=== PATIENT | male | born 2005 | race African-American/Black ===

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

== ENCOUNTER 2024-01-07 07:53 | Emergency (ER) | payer OTHER, SELFPAY ==
[2024-01-07] MEDS ORDERED: AZITHROMYCIN 250 MG TAB ONE (08:39)
[2024-01-07 09:11] LABS: SARS-CoV-2 Antigen CONTROL BLUE LINE VIS/BG OK; SARS-CoV-2 Antigen Rapid Res Negative (Negative)
--- NOTE | 2024-01-07 10:21 | ER ---
Nurse's Notes [facility] Name: Don Maya Age: 18 yrs Sex: Male : 2005 Arrival Date: 01/07/2024 Time: 07:53 Bed 11 Private MD: Diagnosis: Streptococcal pharyngitis;Streptococcal tonsillitis;Fever, unspecified;Acute upper respiratory infection, unspecified Presentation: 01/06 08:33 Chief complaint: Patient states: cold symptoms and sore throat X 4 days. Coronavirus iw screen: Client presents with at least one sign or symptom that may indicate coronavirus-19. Ebola Screen: No symptoms or risks identified at this time. Initial Sepsis Screen: Does the patient meet any 2 criteria? No. Patient's initial sepsis screen is negative. Does the patient have a suspected source of infection?. Risk Assessment: Do you want to hurt yourself or someone else? Patient reports no desire to harm self or others. 08:33 Method Of Arrival: Ambulatory iw 08:33 Acuity: COLEMAN 4 iw 09:00 Onset of symptoms was January 05, 2024. kb3 Historical: - Allergies: 08:34 No Known Allergies; iw - PMHx: 08:34 adhd; Anxiety; Asthma; iw - Immunization history:: Adult Immunizations up to date, Client reports receiving the 2nd dose of the Covid vaccine, Last tetanus immunization: up to date. - Infectious Disease History:: Denies. - Social history:: Smoking status: Reported history of juuling and/or vaping. - Family history:: not pertinent. Screenin:00 [facility] ED Fall Risk Assessment (Adult) History of falling in the last 3 months, kb3 including since admission No falls in past 3 months (0 pts) Confusion or Disorientation No (0 pts) Intoxicated or Sedated No (0 pts) Impaired Gait No (0 pts) Mobility Assist Device Used No (0 pt) Altered Elimination No (0 pt) Score/Fall Risk Level 0 - 2 = Low Risk Oriented to surroundings. 09:00 Abuse screen: Denies threats or abuse. Denies injuries from another. Nutritional kb3 screening: No deficits noted. Tuberculosis screening: No symptoms or risk factors identified. Assessment: 09:00 General: Appears in no apparent distress. Behavior is calm, cooperative. Pain: kb3 Complains of pain in uvula, left aspect of posterior pharynx and right aspect of posterior pharynx Pain does not radiate. Pain currently is 8 out of 10 on a pain scale. Quality of pain is described as burning, Pain began gradually. EENT: Throat is reddened has patchy exudate has enlarged tonsils. Vital Signs: 08:33 BP 125 / 82; Pulse 94; Resp 16; Temp 98.2; Pulse Ox 99% ; Pain 7/10; iw 10:45 BP 117 / 68; Pulse 68; Resp 18; Pulse Ox 100% ; kb3 08:33 Pain Scale: Adult iw ED Course: 07:57 Patient arrived in ED. im 07:59 Sudarshan Dallas MD is Attending Physician. [facility] 08:34 Triage completed. iw 08:35 Arm band placed on. iw 08:48 Strep Sent. iw 08:48 SARS RAPID Sent. iw 08:48 Flu Sent. iw 09:00 Patient has correct armband on for positive identification. Bed in low position. Call kb3 light in reach. Provided Education on: Plan of care. 09:00 No provider procedures requiring assistance completed. Patient did not have IV access kb3 during this emergency room visit. Administered Medications: 08:48 Drug: AZITHromycin PO 500 mg PO once Route: PO; iw 10:48 Follow up: Response: No adverse reaction kb3 10:48 Drug: Ondansetron PO 4 mg PO once Route: PO; kb3 10:48 Follow up: Response: No adverse reaction kb3 Medication: 10:45 VIS not applicable for this client. kb3 Outcome: 10:21 Discharge ordered by . amos 10:52 Discharged to home ambulatory, kb3 10:52 Condition: stable 10:52 Discharge instructions given to patient, Instructed on discharge instructions, follow up and referral plans. medication usage, Demonstrated understanding of instructions, follow-up care, medications, Prescriptions given X 3, 10:52 Patient left the ED. kb3 Signatures: Sudarshan Dallas MD MD cha Williams, Irene RN MISAEL Aliya Eubanks RN RN kb3 Randi Gomez im
--- NOTE | 2024-01-07 10:21 | EDPHYS ---
Physician Documentation [facility] Name: Don Maya Age: 18 yrs Sex: Male : 2005 Arrival Date: 01/07/2024 Time: 07:53 Bed 11 Private MD: UMBERTO Physician Sudarshan Dallas HPI: 01/06 10:15 This 18 yrs old Black Male presents to ER via Ambulatory with complaints of Flu amos Symptoms. 10:15 The patient presents with sore throat. The patient describes throat pain as burning, amos constant, raw. Onset: The symptoms/episode began/occurred 2 day(s) ago. The patient or guardian reports cough, that is intermittent, flu symptoms, arthralgias, low-grade fever, myalgias, no appetite. Modifying factors: The symptoms are alleviated by remaining still, the symptoms are aggravated by activity. Severity of symptoms: At their worst the symptoms were mild, in the emergency department the symptoms are unchanged. Associated signs and symptoms: Pertinent positives: fever, rhinorrhea, sore throat. Modifying factors: The symptoms are alleviated by nothing, the symptoms are aggravated by swallowing. Associated signs and symptoms: Pertinent positives: cough, flu-like symptoms. Severity of symptoms: At their worst the symptoms were moderate in the emergency department the symptoms are unchanged. Historical: - Allergies: 08:34 No Known Allergies; iw - PMHx: 08:34 adhd; Anxiety; Asthma; iw - Immunization history:: Adult Immunizations up to date, Client reports receiving the 2nd dose of the Covid vaccine, Last tetanus immunization: up to date. - Infectious Disease History:: Denies. - Social history:: Smoking status: Reported history of juuling and/or vaping. - Family history:: not pertinent. ROS: 10:15 Constitutional: Negative for fever, chills, and weight loss, Eyes: Negative for injury, amos pain, redness, and discharge, Neck: Negative for injury, pain, and swelling, Cardiovascular: Negative for chest pain, palpitations, and edema, Respiratory: Negative for shortness of breath, cough, wheezing, and pleuritic chest pain, Abdomen/GI: Negative for abdominal pain, nausea, vomiting, diarrhea, and constipation, Back: Negative for injury and pain, : Negative for injury, bleeding, discharge, and swelling, MS/Extremity: Negative for injury and deformity, Skin: Negative for injury, rash, and discoloration, Neuro: Negative for headache, weakness, numbness, tingling, and seizure, Psych: Negative for depression, anxiety, suicide ideation, homicidal ideation, and hallucinations, Allergy/Immunology: Negative for hives, rash, and allergies, Endocrine: Negative for neck swelling, polydipsia, polyuria, polyphagia, and marked weight changes, Hematologic/Lymphatic: Negative for swollen nodes, abnormal bleeding, and unusual bruising, 10:15 ENT: Positive for rhinorrhea, sinus congestion, sore throat, 10:15 Respiratory: Positive for cough, with no reported sputum, 10:15 Skin: Negative for abrasions, abscesses, avulsion, burn, cellulitis, pallor, rash, swelling, Exam: 10:15 Constitutional: This is a well developed, well nourished patient who is awake, alert, amos and in no acute distress. Head/Face: Normocephalic, atraumatic. Eyes: Pupils equal round and reactive to light, extra-ocular motions intact. Lids and lashes normal. Conjunctiva and sclera are non-icteric and not injected. Cornea within normal limits. Periorbital areas with no swelling, redness, or edema. Neck: Trachea midline, no thyromegaly or masses palpated, and no cervical lymphadenopathy. Supple, full range of motion without nuchal rigidity, or vertebral point tenderness. No Meningismus. Chest/axilla: Normal chest wall appearance and motion. Nontender with no deformity. No lesions are appreciated. Cardiovascular: Regular rate and rhythm with a normal S1 and S2. No gallops, murmurs, or rubs. Normal PMI, no JVD. No pulse deficits. Respiratory: Lungs have equal breath sounds bilaterally, clear to auscultation and percussion. No rales, rhonchi or wheezes noted. No increased work of breathing, no retractions or nasal flaring. Abdomen/GI: Soft, non-tender, with normal bowel sounds. No distension or tympany. No guarding or rebound. No evidence of tenderness throughout. Back: No spinal tenderness. No costovertebral tenderness. Full range of motion. Male : Normal genitalia with no discharge or lesions. Skin: Warm, dry with normal turgor. Normal color with no rashes, no lesions, and no evidence of cellulitis. MS/ Extremity: Pulses equal, no cyanosis. Neurovascular intact. Full, normal range of motion. Neuro: Awake and alert, GCS 15, oriented to person, place, time, and situation. Cranial nerves II-XII grossly intact. Motor strength 5/5 in all extremities. Sensory grossly intact. Cerebellar exam normal. Normal gait. Psych: Awake, alert, with orientation to person, place and time. Behavior, mood, and affect are within normal limits. 10:15 ENT: Posterior pharynx: Airway: normal, no evidence of obstruction, Tonsils: are normal in appearance, Uvula: normal, swelling, is not appreciated, erythema, that is mild, exudate, is not appreciated, peritonsillar mass, is not appreciated, Vital Signs: 08:33 BP 125 / 82; Pulse 94; Resp 16; Temp 98.2; Pulse Ox 99% ; Pain 7/10; iw 10:45 BP 117 / 68; Pulse 68; Resp 18; Pulse Ox 100% ; kb3 08:33 Pain Scale: Adult iw MDM: 07:59 Patient medically screened. [facility] 10:19 Differential diagnosis: obstructed airway, bronchitis, flu, URI, group A strep amos tonsillitis, influenza, pharyngitis, tonsillitis, tracheobronchitis, upper respiratory infection, uvulitis, viral syndrome. Antibiotic administration: The patient is discharged and will get outpatient antibiotics, Zithromax. Data reviewed: vital signs, nurses notes, lab test result(s), Flu: negative. Consideration of Admission/Observation Escalation of care including admission/observation considered. I considered the following discharge prescriptions or medication management in the emergency department Medications were administered in the Emergency Department. See MAR. Test considered but Not performed: X-ray: no cxr. Care significantly affected by the following chronic conditions: asthma, anxiety, adhd. 01/06 08:00 Order name: Flu; Complete Time: 10:14 amos 01/06 08:00 Order name: SARS RAPID; Complete Time: :41 amos 01/06 08:00 Order name: Strep; Complete Time: 09:41 amos Administered Medications: 08:48 Drug: AZITHromycin PO 500 mg PO once Route: PO; iw 10:48 Follow up: Response: No adverse reaction kb3 10:48 Drug: Ondansetron PO 4 mg PO once Route: PO; kb3 10:48 Follow up: Response: No adverse reaction kb3 Disposition Summary: 01/07/24 10:21 Discharge Ordered Notes: Location: Home [facility] Problem: new [facility] Symptoms: have improved [facility] Condition: Stable [facility] Diagnosis - Streptococcal pharyngitis amos - Streptococcal tonsillitis amos - Fever, unspecified amos - Acute upper respiratory infection, unspecified amos Followup: [facility] - With: Private Physician - When: 2 - 3 days - Reason: Recheck today's complaints, Continuance of care, Re-evaluation by your physician Discharge Instructions: - Discharge Summary Sheet amos - Fever, Adult amos - Sore Throat amos - Strep Throat, Adult amos - Upper Respiratory Infection, Adult amos - Cool Mist Vaporizer amos - Upper Respiratory Infection, Adult, Olcf-av-Peew amos - Cough, Adult, Hmqq-[id number] amos - Cough, Adult amos - Sore Throat, Ocfr-im-Mhpt amos - Fever, Adult, Xdks-ew-Dshx amos Forms: - Medication Reconciliation Form [facility] - Antibiotic Education amos - Prescription Opioid Use [facility] - Patient Portal Instructions [facility] - Leadership Thank You Letter [facility] Prescriptions: - Tessalon Perles 100 mg Oral capsule - take 2 capsule ORAL route every 8 hours As needed; 30 capsule; Refills: 0, [facility] Product Selection Permitted - Medrol (Christopher) 4 mg Oral Tablets, Dose Pack - take 1 tablet ORAL route as directed - follow package instructions; 1 packet; [facility] Refills: 0, Product Selection Permitted - Zithromax 500 mg Oral Tablet - take 1 tablet ORAL route once daily for 5 days; 5 tablet; Refills: 0, Product [facility] Selection Permitted Signatures: Dispatcher [employer] Sudarshan Owen MD MD cha Williams, Irene, RN RN iw Leal, Jahala, RN RN jl7 Aliya Eubanks RN RN kb3
[2024-01-07] MEDS ORDERED: ONDANSETRON 4 MG (ODT) TAB ONE (10:42)
[2024-01-07 10:58] VITALS: TEMP 98.2
[2024-01-07 10:59] VITALS: BP 117/68; O2SAT 100
== END 2024-01-07 10:52 | disposition home or self-care (01) ==
LOC: ER 07:53
DX: J03.00 Acute streptococcal tonsillitis, unspecified (principal); J06.9 Acute upper respiratory infection, unspecified; Z11.52 Encounter for screening for COVID-19
CPT/HCPCS: 36415; 87081; 87804; 87811; 99283; Q0162

== ENCOUNTER 2024-05-20 21:51 | Emergency (ER) | payer SELFPAY ==
--- OUTSIDE RECORDS SUMMARY | 2024-05-20 21:53 | XMS REPORT | Continuity of Care Document ---
Author Name Unknown Address [address] [facility]. [address] th[address] Address [address] [place] [address] 1 [address] [place] [address] Care Team Providers Care Registered Nurse First Assistant Name Role Phone Unavailable Unavailable Unavailable Encounters Start Date/Time End Date/Time Encounter Type Admission Type Attending Clinicians Care Facility Care Department Encounter ID Source 2024-05-05 11:01:20 2024-05-05 11:01:20 Outpatient [facility] [id number] Keyshawn Zavala
[2024-05-20 22:44] LABS: SARS-CoV-2 Antigen CONTROL BLUE LINE VIS/BG OK; SARS-CoV-2 Antigen Rapid Res Negative (Negative)
--- NOTE | 2024-05-20 23:22 | EDPHYS ---
Physician Documentation [facility] Name: Don Maya Age: 19 yrs Sex: Male : 2005 Arrival Date: 05/20/2024 Time: 21:51 Bed IW3 Private MD: ED Physician Ricky Sanches HPI: 05/20 22:33 This 19 yrs old Black Male presents to ER via Ambulatory with complaints of Flu kb Symptoms. 22:33 Pt is a 19 year old male who presents for malaise, chills, bodyaches, cough and runny kb nose that started today. States everyone in the household has had similar symptoms. Denies any aggravating or alleviating factors. . Historical: - Allergies: 22:05 No Known Allergies; me1 - PMHx: 22:05 adhd; Anxiety; Asthma; me1 - PSHx: 22:05 None; me1 - Immunization history:: Adult Immunizations up to date. - Infectious Disease History:: Denies. - Social history:: Smoking status: Patient reports the use of cigarette tobacco products, smokes one-half pack cigarettes per day. ROS: 22:33 Constitutional: As per HPI kb Exam: 22:33 Constitutional: This is a well developed, well nourished patient who is awake, alert, kb and in no acute distress. Head/Face: Normocephalic, atraumatic. ENT: Moist Mucous membranes Cardiovascular: Regular rate Respiratory: Respirations even and unlabored. No increased work of breathing. Talking in full sentences Skin: Warm, dry with normal turgor. Normal color. MS/ Extremity: Pulses equal, no cyanosis. Neurovascular intact. Full, normal range of motion. Neuro: Awake and alert, GCS 15, oriented to person, place, time, and situation. Vital Signs: 22:02 BP 154 / 95; Pulse 82; Resp 18; Temp 98.4; Pulse Ox 100% ; Weight 104.33 kg; Height 6 me1 ft. 2 in. ; Pain 4/10; 23:32 BP 148 / 89; Pulse 84; Resp 17; Temp 98.4; Pulse Ox 100% ; me1 22:02 Body Mass Index 29.53 (104.33 kg, 187.96 cm) me1 22:02 Pain Scale: Adult me1 MDM: 22:01 Medical Screening Exam initiated 22:34 Differential diagnosis: flu, strep, covid, uri. Data reviewed: vital signs, nurses kb notes. 23:21 I considered the following discharge prescriptions or medication management in the emergency department I discussed and recommended Over The Counter medications, Antibiotics: At this time antibiotics are not recommended, Antivirals: At this time, antivirals are not recommended. Counseling: I had a detailed discussion with the patient and/or guardian regarding the historical points, exam findings, and any diagnostic results supporting the discharge/admit diagnosis, lab results, the need for outpatient follow up, a family practitioner, to return to the emergency department if symptoms worsen or persist or if there are any questions or concerns that arise at home. 05/20 22:05 Order name: Flu; Complete Time: 22:58 kb 05/20 22:05 Order name: SARS-COV-2 Antigen Rapid; Complete Time: 22:58 kb 05/20 22:05 Order name: Strep; Complete Time: 22:58 kb 05/20 22:48 Order name: Throat Culture EDMS Administered Medications: No medications were administered Disposition: 05/21 21:56 Co-signature as Attending Physician, Ricky Sanches MD I agree with the assessment sp4 and plan of care. I reviewed the patient's care provided by the Advanced Practice Provider and agree with the diagnosis and treatment plan. Disposition Summary: 05/20/24 23:21 Discharge Ordered Notes: Location: Home Condition: Stable kb Diagnosis - Acute upper respiratory infection, unspecified kb Followup: kb - With: Emergency Department - When: As needed - Reason: Worsening of condition Followup: kb - With: Private Physician - When: 2 - 3 days - Reason: Recheck today's complaints, Continuance of care, Re-evaluation by your physician Discharge Instructions: - Discharge Summary Sheet kb - Upper Respiratory Infection, Adult, Rsis-ov-Mmuk kb - Viral Respiratory Infection, Robb-Wg-Vbpb kb Forms: - Work release form kb - Medication Reconciliation Form kb - Antibiotic Education kb - Prescription Opioid Use kb - Patient Portal Instructions kb - Leadership Thank You Letter kb Signatures: Dispatcher [employer] EDMarii Estevez FNP-C FNP-Ckb Potepalov, Sergey, MD MD sp4 Tayler Luna RN RN me1 Corrections: (The following items were deleted from the chart) 05/20 22:34 22:33 Pt is a 19 year old male who presents for malaise, cough and runny nose that . kb kb
--- NOTE | 2024-05-20 23:22 | ER ---
Nurse's Notes [facility] Name: Don Maya Age: 19 yrs Sex: Male : 2005 Arrival Date: 05/20/2024 Time: 21:51 Bed IW3 Private MD: Diagnosis: Acute upper respiratory infection, unspecified Presentation: 05/20 22:02 Chief complaint: Patient states: he almost passed out today about noon. c/o body aches, me1 mild cough and congestion that started today. Reports others in the household have been sick with cough. Coronavirus screen: Vaccine status: Patient reports being unvaccinated. Ebola Screen: No symptoms or risks identified at this time. Initial Sepsis Screen: Does the patient meet any 2 criteria? No. Patient's initial sepsis screen is negative. Does the patient have a suspected source of infection? No. Patient's initial sepsis screen is negative. Risk Assessment: Do you want to hurt yourself or someone else? Patient reports no desire to harm self or others. Onset of symptoms was May 19, 2024. 22:02 Method Of Arrival: Ambulatory [facility] 22:02 Acuity: COLEMAN 4 me1 Historical: - Allergies: 22:05 No Known Allergies; me1 - PMHx: 22:05 adhd; Anxiety; Asthma; me1 - PSHx: 22:05 None; me1 - Immunization history:: Adult Immunizations up to date. - Infectious Disease History:: Denies. - Social history:: Smoking status: Patient reports the use of cigarette tobacco products, smokes one-half pack cigarettes per day. Screenin:02 [facility] ED Fall Risk Assessment (Adult) History of falling in the last 3 months, me1 including since admission No falls in past 3 months (0 pts) Confusion or Disorientation No (0 pts) Intoxicated or Sedated No (0 pts) Impaired Gait No (0 pts) Mobility Assist Device Used No (0 pt) Altered Elimination No (0 pt) Score/Fall Risk Level 0 - 2 = Low Risk Maintained a safe environment, Provided non-skid footwear, Hourly rounding (assess needs \T\ fall precautionary measures) done. Abuse screen: Denies threats or abuse. Nutritional screening: No deficits noted. Tuberculosis screening: No symptoms or risk factors identified. Assessment: 22:02 General: Appears in no apparent distress. well groomed, well developed, well nourished, me1 Behavior is calm, cooperative, appropriate for age, Reports he almost passed out today about noon. c/o body aches, mild cough and congestion that started today. Reports others in the household have been sick with cough. Pain: Denies pain. Neuro: Level of Consciousness is awake, alert, obeys commands, Oriented to person, place, time, situation, Appropriate for age. Cardiovascular: Patient's skin is warm and dry. Respiratory: Airway is patent Respiratory effort is even, unlabored, Respiratory pattern is regular, symmetrical. Respiratory: Reports cough that is. GI: No signs and/or symptoms were reported involving the gastrointestinal system. : No signs and/or symptoms were reported regarding the genitourinary system. EENT: Reports nasal congestion. Derm: Skin is intact, is healthy with good turgor, Skin is pink, warm \T\ dry. Musculoskeletal: No signs and/or symptoms reported regarding the musculoskeletal system. Vital Signs: 22:02 BP 154 / 95; Pulse 82; Resp 18; Temp 98.4; Pulse Ox 100% ; Weight 104.33 kg; Height 6 me1 ft. 2 in. ; Pain 4/10; 23:32 BP 148 / 89; Pulse 84; Resp 17; Temp 98.4; Pulse Ox 100% ; me1 22:02 Body Mass Index 29.53 (104.33 kg, 187.96 cm) me1 22:02 Pain Scale: Adult me1 ED Course: 21:58 Patient arrived in ED. im 22:00 [facility]C [facility] kb 22:00 Ricky Sanches MD is Attending Physician. kb 22:02 Patient has correct armband on for positive identification. Provided Education on: POC. me1 Verbalized understanding. 22:02 No provider procedures requiring assistance completed. Patient did not have IV access me1 during this emergency room visit. 22:04 Triage completed. me1 22:05 Arm band placed on Patient placed in waiting room. me1 22:10 COVID swab sent to lab. Flu and/or RSV swab sent to lab. Strep swab sent to lab. me1 Administered Medications: No medications were administered Medication: 22:02 VIS not applicable for this client. me1 Outcome: 23:21 Discharge ordered by . kb 23:33 Discharged to home ambulatory, me1 23:33 Condition: stable 23:33 Discharge instructions given to patient, Instructed on discharge instructions, follow up and referral plans. Demonstrated understanding of instructions, follow-up care, 23:33 Patient left the ED. me1 Signatures: Marii Olson, FORDER OPERATOR-C FORDER OPERATOR-CkRandi Dillon Michelle, RN RN me1 Corrections: (The following items were deleted from the chart) 22:27 22:02 Chief complaint: Patient states: he almost passed out today about noon. c/o body me1 aches, mild cough and congestion that started today. Reports others in the household have been sick with cough. me1 22:41 22:02 Chief complaint: Patient states: he almost passed out today about noon. c/o body me1 aches, mild cough and congestion that started today. Reports others in the household have been sick with cough. me1
[2024-05-20 23:39] VITALS: TEMP 98.4; O2SAT 100
[2024-05-20 23:40] VITALS: BP 148/89
== END 2024-05-20 23:33 | disposition home or self-care (01) ==
LOC: ER 21:51
DX: J06.9 Acute upper respiratory infection, unspecified (principal); Z11.52 Encounter for screening for COVID-19
CPT/HCPCS: 36415; 87070; 87081; 87804; 87811

== ENCOUNTER 2024-06-03 08:39 | Emergency (ER) | payer SELFPAY ==
--- OUTSIDE RECORDS SUMMARY | 2024-06-03 08:41 | XMS REPORT | Continuity of Care Document ---
Author Name Unknown Address [address] [place] [address] thconnect Address [address] [place] [address] [address] [place] [address] Care Team Providers Care Senior Electrical Design Engineer Name Role Phone Unavailable Unavailable Unavailable Encounters Start Date/Time End Date/Time Encounter Type Admission Type Attending Clinicians Care Facility Care Department Encounter ID Source 2024-05-05 11:01:20 2024-05-05 11:01:20 Outpatient [facility] [id number] Keyshawn Zavala
--- NOTE | 2024-06-03 09:00 | EDPHYS ---
Physician Documentation [facility] Name: Don Maya Age: 19 yrs Sex: Male : 2005 Arrival Date: 06/03/2024 Time: 08:39 Bed 6 Private MD: ED Physician Master Rueda HPI: 06/03 08:56 This 19 yrs old Black Male presents to ER via Unassigned with complaints of Fever, rn Cough, Vomiting. 08:56 The patient reports fever, not measured (subjective). Onset: The symptoms/episode rn began/occurred 3 day(s) ago. Modifying factors: The patient has had contact with sick. Severity of symptoms: At their worst the symptoms were mild in the emergency department the symptoms are unchanged. The patient has experienced similar episodes in the past. Patient reports started feeling sick 3 days ago with subjective fever, congestion, runny nose, cough, sore throat, nausea with vomiting and diarrhea. Overall is feeling better and no longer having vomiting or diarrhea. No longer having fever. Patient reports still not completely back to normal but heading that way. States work is requiring a note. Denies shortness of breath. Reports vapes.. Historical: - Allergies: 08:57 No Known Allergies; ap3 - PMHx: 08:57 adhd; Anxiety; Asthma; ap3 - Immunization history:: Client reports having NOT received the Covid vaccine. - Infectious Disease History:: Denies. - Family history:: not pertinent. - Social history:: Smoking status: Patient denies any tobacco usage or history of. - Hospitalizations: : No recent hospitalization is reported. ROS: 08:56 Constitutional: Positive for subjective fever and chills ENT: Positive for nasal rn congestion Cardiovascular: Negative for chest pain, palpitations, and edema, Respiratory: Positive for cough, negative for shortness of breath Abdomen/GI: Negative for abdominal pain, nausea, vomiting, diarrhea, and constipation, MS/Extremity: Negative for injury and deformity, Neuro: Negative for headache, weakness, numbness, tingling, and seizure, Exam: 08:56 Constitutional: This is a well developed, well nourished patient who is awake, alert, rn and in no acute distress. Head/Face: Normocephalic, atraumatic. ENT: Clear nasal drainage, mild pharyngeal erythema without exudate or stridor Cardiovascular: Regular rate and rhythm. No pulse deficits. Respiratory: No increased work of breathing, no retractions or nasal flaring. Abdomen/GI: Soft, non-tender MS/ Extremity: Pulses equal, no cyanosis. Neurovascular intact. Full, normal range of motion. Equal circumference. Neuro: Awake and alert, GCS 15 Vital Signs: 08:55 BP 138 / 94; Pulse 98; Resp 18; Temp 98.2(O); Pulse Ox 97% on R/A; Weight 96.16 kg; ap3 09:19 BP 127 / 89; Pulse 84; Resp 16; Pulse Ox 100% ; bp MDM: 08:44 Medical Screening Exam initiated rn 08:56 Differential diagnosis: viral Infection, URI. Data reviewed: vital signs, nurses notes, rn and as a result, I will discharge patient. Counseling: I had a detailed discussion with the patient and/or guardian regarding the historical points, exam findings, and any diagnostic results supporting the discharge/admit diagnosis, the need for outpatient follow up, to return to the emergency department if symptoms worsen or persist or if there are any questions or concerns that arise at home. Special discussion: I discussed with the patient/guardian in detail that at this point there is no indication for admission to the hospital. It is understood, however, that if the symptoms persist or worsen the patient needs to return immediately for re-evaluation. ED course: Patient most likely with viral illness given multiple family members sick with similar symptoms. Patient is already improving on its own with [id number] medication. Is afebrile and no oxygen requirement. Will provide the note that he is asking for an discharge home without antibiotics. Return precautions given and understood.. Administered Medications: No medications were administered Disposition Summary: 06/03/24 08:59 Discharge Ordered Notes: Location: Home rn Problem: new rn Symptoms: have improved rn Condition: Stable rn Diagnosis - Acute upper respiratory infection, unspecified rn Followup: rn - With: Private Physician - When: As needed - Reason: Recheck today's complaints, Re-evaluation by your physician Discharge Instructions: - Discharge Summary Sheet rn - Upper Respiratory Infection, Adult rn - Viral Respiratory Infection rn Forms: - Medication Reconciliation Form rn - Antibiotic cad intern - Prescription Opioid Use rn - Patient Portal Instructions rn - Leadership Thank You Letter rn - Work release form ap3 Signatures: Master Rueda MD MD rn Prokisch, Sirisha, RN RN ap3
--- NOTE | 2024-06-03 09:00 | ER ---
Nurse's Notes [facility] Name: Don Maya Age: 19 yrs Sex: Male : 2005 Arrival Date: 06/03/2024 Time: 08:39 Bed 6 Private MD: Diagnosis: Acute upper respiratory infection, unspecified Presentation: 06/03 08:55 Chief complaint: Patient states: he has been having body aches, congestion and chills ap3 that started Saturday06/01/24. Coronavirus screen: Client presents with at least one sign or symptom that may indicate coronavirus-19. Ebola Screen: No symptoms or risks identified at this time. Initial Sepsis Screen: Does the patient meet any 2 criteria? HR > 90 bpm. No. Patient's initial sepsis screen is negative. Does the patient have a suspected source of infection? No. Patient's initial sepsis screen is negative. Risk Assessment: Do you want to hurt yourself or someone else? Patient reports no desire to harm self or others. Onset of symptoms was June 01, 2024. 08:55 Method Of Arrival: Ambulatory ap3 08:55 Acuity: COLEMAN 4 ap3 Triage Assessment: 08:57 General: Appears in no apparent distress. Behavior is calm, cooperative, appropriate ap3 for age. General: Reports chills for fever for feeling ill for fatigue for. Pain: Complains of pain in generalized body pain. Neuro: Level of Consciousness is awake, alert, obeys commands, Oriented to person, place, time, situation, Appropriate for age. Cardiovascular: Patient's skin is warm and dry. Respiratory: Reports cough that is Airway is patent Respiratory effort is even, unlabored, Respiratory pattern is regular, symmetrical. GI: Reports nausea, vomiting. Historical: - Allergies: 08:57 No Known Allergies; ap3 - PMHx: 08:57 adhd; Anxiety; Asthma; ap3 - Immunization history:: Client reports having NOT received the Covid vaccine. - Infectious Disease History:: Denies. - Family history:: not pertinent. - Social history:: Smoking status: Patient denies any tobacco usage or history of. - Hospitalizations: : No recent hospitalization is reported. Screenin:58 [facility] ED Fall Risk Assessment (Adult) History of falling in the last 3 months, ap3 including since admission No falls in past 3 months (0 pts) Confusion or Disorientation No (0 pts) Intoxicated or Sedated No (0 pts) Impaired Gait No (0 pts) Mobility Assist Device Used No (0 pt) Altered Elimination No (0 pt) Score/Fall Risk Level 0 - 2 = Low Risk Oriented to surroundings, Maintained a safe environment, Educated pt \T\ family on fall prevention, incl call for assistance when getting out of bed, Assessed \T\ reinforced patient's understanding of fall precautions, Hourly rounding (assess needs \T\ fall precautionary measures) done, Used ambulatory aids as needed (educated on \T\ assisted with). Abuse screen: Denies threats or abuse. Nutritional screening: No deficits noted. Tuberculosis screening: No symptoms or risk factors identified. Assessment: 09:19 Reassessment: Patient appears in no apparent distress at this time. Patient is alert, bp oriented x 3, equal unlabored respirations, skin warm/dry/pink. GI: Abdomen is non-distended. Vital Signs: 08:55 BP 138 / 94; Pulse 98; Resp 18; Temp 98.2(O); Pulse Ox 97% on R/A; Weight 96.16 kg; ap3 09:19 BP 127 / 89; Pulse 84; Resp 16; Pulse Ox 100% ; bp ED Course: 08:44 Patient arrived in ED. mr 08:44 Master Rueda MD is Attending Physician. rn 08:51 Ajay Styles, MISAEL is Primary Nurse. bp 08:57 Triage completed. ap3 08:58 Arm band placed on right wrist. ap3 09:19 Patient has correct armband on for positive identification. bp 09:19 No provider procedures requiring assistance completed. Patient did not have IV access bp during this emergency room visit. 09:20 Provided Education on: na. bp Administered Medications: No medications were administered Medication: 08:58 VIS not applicable for this client. ap3 Outcome: 08:59 Discharge ordered by . rn 09:19 Discharged to home ambulatory, bp 09:19 Condition: stable 09:19 Discharge instructions given to patient, Instructed on discharge instructions, follow up and referral plans. Demonstrated understanding of instructions, follow-up care, 09:21 Patient left the ED. bp Signatures: Kandis Horne, Reg Reg mr Master Reuda MD MD rn Peltier, Brian, RN RN bp Prokisch, Sirisha, RN RN ap3
[2024-06-03 09:25] VITALS: TEMP 98.2
[2024-06-03 09:26] VITALS: BP 127/89; O2SAT 100
== END 2024-06-03 09:21 | disposition home or self-care (01) ==
LOC: ER 08:39
DX: J06.9 Acute upper respiratory infection, unspecified (principal)
CPT/HCPCS: 99282